=== PATIENT | male | born 1960 | race African-American/Black ===

== ENCOUNTER 2021-07-15 07:42 | Day surgery (SDC) | payer BC ==
[2021-07-10 15:40] VITALS: BMI 33.9
[2021-07-15 08:11] VITALS: TEMP 98.2
[2021-07-15 09:54] VITALS: BP 122/68; PULSE 64
== END 2021-07-15 10:28 | disposition home or self-care (01) ==
LOC: FASU-ENDO 07:42
PROVIDERS: ATTEND Internal Medicine Gastroenterology
PROC: 0DJD8ZZ Inspection of Lower Intestinal Tract, Via Natural or Artificial Opening Endoscopic (ICD-10-PCS; principal; 2021-07-15 09:07)
DX: Z12.11 Encounter for screening for malignant neoplasm of colon (principal); K57.30 Diverticulosis of large intestine without perforation or abscess without bleeding